=== PATIENT | male | born 1965 | race Caucasian/White ===

== ENCOUNTER 2019-12-13 18:43 | Emergency (ER) | payer MEDICARE, SELFPAY ==
[2019-12-13 18:44] VITALS: BP 116/70; PULSE 91; RESP 18; TEMP 37.1; O2SAT 96; BMI 28.9
--- NOTE | 2019-12-13 18:57 | CT_ITS ---
STUDY: CT BRAIN WITHOUT CONTRAST REASON FOR EXAM: Male, 54 years old. Fall. RADIATION DOSAGE (If Supplied By Facility): CTDIvol = ( 44.99 ) mGy, DLP = ( 796.11 ) mGycm TECHNIQUE: Transaxial CT imaging of the brain was performed without administration of intravenous contrast material. Individualized dose optimization techniques were used for this CT. COMPARISON: None. FINDINGS: There is no acute bleed or infarct. There are chronic ischemic and atrophic changes. The ventricles are normal in configuration. There is no hydrocephalus. The visualized paranasal sinuses are clear. The mastoid air cells are well aerated. There is no skull fracture. CT/Brain/Head without Contrast IMPRESSION: No acute intracranial abnormality. Chronic ischemic and atrophic changes. Electronically Signed: Coy Morgan, at 19:59 EDT Tel , Service support ,
--- NOTE | 2019-12-13 18:57 | CT_ITS ---
STUDY: CT CHEST WITHOUT CONTRAST REASON FOR EXAM: Male, 54 years old. Fall RADIATION DOSAGE (If Supplied By Facility): CTDIvol = ( 17.34 ) mGy, DLP = ( 758.15 ) mGycm TECHNIQUE: Transaxial imaging was performed without the administration of intravenous contrast material. Coronal and sagittal reformatted images were created. Individualized dose optimization techniques were used for this CT. COMPARISON: None FINDINGS: The study is limited by patient motion, lack of contrast and streak artifact due to the patient''s arms being at his sides. There are no pulmonary infiltrates or pleural effusions. There is dependent atelectasis noted in the lung. There is no pneumothorax. The heart and pericardium are within normal limits. There are coronary artery calcifications. There is no thoracic lymphadenopathy. There is no evidence of thoracic aortic aneurysm. Images through the upper abdomen demonstrate no significant abnormality. The visualized thoracic osseous structures are intact. CT/Chest without Contrast IMPRESSION: No acute traumatic findings demonstrated on this noncontrast CT of the chest. Coronary artery disease. Electronically Signed: Coy Morgan, at 20:02 EDT Tel , Service support ,
[2019-12-13 19:40] VITALS: BP 139/91; PULSE 88; RESP 16; O2SAT 95
--- NOTE | 2019-12-13 20:22 | ED.VIS.GEN ---
History of Present Illness Chief Complaint: Fall Past Medical History - Allergies and Home Meds Allergies/Adverse Reactions: Allergies No Known Allergies Allergy (Verified 12/13/19 18:47) Primary Care Physician: Care Physician,No Primary [Primary Care Provider] - Smoking Status: Never smoker Physical Exam Vital Signs/Narrative: Vital Signs Temp Pulse Resp BP Pulse Ox 12/13/19 19:40 88 16 139/91 H 95 12/13/19 18:44 98.7 F 91 18 116/70 96 ED Disposition - Plan for ED Patient: Disposition: Home or Assisted Living Diagnosis: Chest wall contusion, Forehead contusion Instructions: ED CHEST CONTUSION Prescriptions: Ibuprofen [Motrin] 800 mg PO TID PRN PRN #20 tab PRN Reason: Pain Or Fever Prescription Printed Additional Instructions: Follow-up with your doctor when you get back home.
[2019-12-13 20:54] VITALS: BP 115/70; PULSE 85; RESP 16; O2SAT 95
== END 2019-12-13 21:16 | disposition home or self-care (01) ==
PROVIDERS: Emergency Provider Emergency Medicine
DX: S20.219A Contusion of unspecified front wall of thorax, initial encounter (principal); S00.83XA Contusion of other part of head, initial encounter; W19.XXXA Unspecified fall, initial encounter; Y93.9 Activity, unspecified; Y92.9 Unspecified place or not applicable
CPT/HCPCS: 70450; 71250; 99284